=== PATIENT | female | born 1975 | race Caucasian/White ===

== ENCOUNTER 2021-03-23 08:36 | Emergency (ER) | payer BC, SELFPAY ==
[2021-03-23 08:44] VITALS: BP 157/106; PULSE 75; RESP 16; TEMP 36.1; O2SAT 99
--- NOTE | 2021-03-23 08:44 | ED.LOWEXIN ---
HPI - Extremity Injury (Lower) General Chief Complaint: Extremity Injury, Lower Stated Complaint: little toe right foot Time Seen by Provider: 03/23/21 08:46 Source: patient and RN notes reviewed History of Present Illness HPI Narrative: Patient is a 45-year-old female who presents the urgent care with complaints of bruising to the left pinky toe radiating down the left foot with associated pain. Patient states that she followed up with her doctor 2 weeks ago when she had the initial redness to the toe and he placed her on Keflex. Patient states that she is on her 6-day of Keflex without any improvement and now the bruising is spreading. Patient states that she has a lot of pain when wearing a shoe. Denies of any known injury. No other acute complaints. No acute distress noted. Patient aware of the plan of care. Some parts of this dictation were generated by voice recognition software and may contain typographical and/or grammatical inaccuracies. Related Data Home Medications Medication Instructions Recorded Confirmed amlodipine 5 mg PO DAILY 03/23/21 03/23/21 [id number] 1 tablet PO Q4-6H PRN 03/23/21 03/23/21 irbesartan 150 mg PO DAILY 03/23/21 03/23/21 metformin 500 mg PO BID 03/23/21 03/23/21 omeprazole 20 mg PO DAILY 03/23/21 03/23/21 propranolol 20 mg PO Q12H 03/23/21 03/23/21 Allergies Allergy/AdvReac Type Severity Reaction Status Date / Time No Known Allergies Allergy Verified 03/23/21 09:08 Review of Systems Review of Systems: CONSTITUTIONAL: Denies fever, chills, or sweats. EYES: Denies visual changes, redness, or discharge. ENT: Denies rhinorrhea, congestion, sore throat, or otalgia. CARDIOVASCULAR: Denies chest pain, palpitations, or edema. RESPIRATORY: Denies cough or dyspnea. GASTROINTESTINAL: Denies abdominal pain, nausea, vomiting, or diarrhea. GENITOURINARY: Denies dysuria or hematuria. SKIN: Denies rash or itching. MUSCULOSKELETAL: Reports of pain and bruising to the right pinky toe NEUROLOGIC: Denies headache, numbness, or weakness. All other systems reviewed are negative, except as documented in HPI. PMFSH Comments At the time of my signature, I reviewed and agree with the nursing past medical, surgical, social, and family history. There is no relevant family history pertinent to the patient complaint. Exam Narrative: GENERAL: This is a well-nourished, well-developed patient, in no apparent distress. HEAD: normocephalic, atraumatic. EYES: PERRL. Sclera clear/white. Vision is grossly intact. EARS: External ears normal, NOSE: External nose normal with no obvious nasal discharge, nares without redness, no rhinorrhea. THROAT: Mucous membranes moist NECK: Neck supple CARDIOVASCULAR: Regular rate and rhythm without murmurs, gallops, or rubs. SKIN: warm, intact with no suspicious lesions or rash, good texture and turgor. NEURO: awake, alert, and oriented to person, place and time. There were no obvious focal neurologic abnormalities. EXTREMITIES: Moderate ecchymosis to the right small/fifth digit toe with scattered ecchymosis to the lateral aspect of the right foot and to the tip of the right great toe. Positive strong right pedal pulse with capillary refill less than 2 seconds Course Course Level of Care: Express Care Visit Vital Signs Vital signs: Vital Signs Temperature 97 F L 03/23/21 08:44 Pulse Rate 75 03/23/21 08:44 Respiratory Rate 16 03/23/21 08:44 Blood Pressure 157/106 H 03/23/21 08:44 Pulse Oximetry 99 03/23/21 08:44 Temperature 97 F L 03/23/21 08:44 Pulse Rate 75 03/23/21 08:44 Respiratory Rate 16 03/23/21 08:44 Blood Pressure 157/106 H 03/23/21 08:44 Pulse Oximetry 99 03/23/21 08:44 Reviewed-patient is informed that they may have pre-hypertension or hypertension based on a blood pressure reading in the department. I recommend the patient call the primary care provider listed on their discharge instructions or a physician of their
== END 2021-03-23 09:25 | disposition home or self-care (01) ==
PROVIDERS: Emergency Provider Nurse Practitioner Family; PCP Internal Medicine
DX: R23.8 Other skin changes (principal); I10 Essential (primary) hypertension; K21.9 Gastro-esophageal reflux disease without esophagitis; E11.9 Type 2 diabetes mellitus without complications
CPT/HCPCS: 99212; G0463